=== PATIENT | female | born 1960 | race Two or more races ===

== ENCOUNTER 2020-01-02 10:58 | Outpatient (AMBR) | payer MEDICAID, SELFPAY ==
--- NOTE | 2020-01-02 16:33 | PT.ODS1RPT ---
PT OP Progress/Discharge Note Date of Service: January 02, 2020 Progress Note/DC Note Progress Note/Discharge Note: DC Note Patient Information Visit Reasons: RIGHT SHOULDER PAIN Medical Diagnosis: Right Shoulder Impingement Treatment Dx #1: Right Shoulder Pain Treatment Dx #2: Right Shoulder Mobility Deficits Service Continue Service or Discharge: Discharge Discharge Date: 01/02/20 Status Subjective: Pt mention that her shoulder is feeling worse. Pt does not notice any difference since started physical therapy. Pt continues to have limitation with overhead motions, lifting, chores, self care, cooking, and cleaning. Pt will like to stop physical therapy and return back to surgeon Objective: Right Shoulder AROM Flexion: 90 deg Abduction: 90 deg External Rotation: 90 deg Internal Rotation: 20 deg Right Shoulder MMTs: grossly 3-/5 Right Scapula MMTs: grossly 3-/5 Special Test (+) speed's (+) [email or web address]'s Assessment: Pt demonstrate no changes in ROM and strength since starting physical therapy leading to continue limitation with ADLs, chores, and overhead motions. Pt's have worsening symptoms after each therapy session. Pt advised to follow up with MD for further consultation. Pt did not meet set goals in therapy and was not given HEP due to exercises increase shoulder pain/symptoms. Pt will follow up with MD MACHUCA, thank you for your referrals. Plan: D/C home with HEP and follow up with MD Office Procedures PT Procedures PT Date of Service: 01/02/20 Therapeutic Exercise 30 minutes: Yes
== END 2020-01-30 23:59 | disposition home or self-care (01) ==
PROVIDERS: Visit Provider Orthopaedic Surgery
DX: M75.41 Impingement syndrome of right shoulder (principal); G89.29 Other chronic pain; M25.511 Pain in right shoulder
CPT/HCPCS: 97110

== ENCOUNTER → 2024-08-22 | Outpatient (CLI) | payer BC, SELFPAY ==
--- NOTE | 2024-08-22 11:34 | XR_ITS ---
Examination: Foot, right, 3 views Technique: AP, oblique, lateral views foot, 3 views Date and time of exam: August 22, 2024 1140 hours INDICATIONS: Right foot pain beginning one year ago. FINDINGS: Moderate osteoarthritis first metatarsophalangeal joint Small plantar posterior bony calcaneal spurs No fracture or dislocation IMPRESSION: Moderate osteoarthritis first metatarsophalangeal joint Small plantar posterior bony calcaneal spurs
--- NOTE | 2024-08-22 11:34 | XR_ITS ---
EXAMINATION: Ankle, right 3 views . Technique: Ankle AP, oblique, lateral 3 views Date and time of exam: August 22, 2024 1140 hours INDICATIONS: Right ankle pain one year getting worse. FINDINGS: Moderate osteopenia Mild osteoarthritis tibiotalar joint 5 mm plantar 4 mm posterior bony calcaneal spurs No fracture or dislocation IMPRESSION: Mild osteoarthritis tibiotalar joint 5 mm plantar 4 mm posterior bony calcaneal spurs
== END | disposition home or self-care (01) ==
PROVIDERS: PCP Internal Medicine; Referring Provider Internal Medicine; Visit Provider Internal Medicine
DX: M19.071 Primary osteoarthritis, right ankle and foot (principal); M77.31 Calcaneal spur, right foot
CPT/HCPCS: 73610; 73630

== ENCOUNTER → 2024-08-23 | Outpatient (CLI) | payer BC, SELFPAY ==
[2024-08-23 08:32] LABS: Basophils % (Auto) 0 % (0-2.5); Eosinophils # (Auto) 0.1 Thou/mm3 (0.0-0.5); Eosinophils % (Auto) 2 % (0-10); Hematocrit 39.6 % (36.0-46.0); Immature Granulocytes % (Auto) 0 % (0-0); Immature Granulocytes Auto 0.01 Thou/mm3 (0.00-0.00); Lymphocytes # (Auto) 2.6 Thou/mm3 (1.0-4.8); Lymphocytes % (Auto) 50 % (10-50); Mean Corpuscular HGB Conc 32.8 g/dl (31.0-37.0); Mean Corpuscular Hemoglobin 29.1 pg (25.0-35.0); Mean Corpuscular Volume 89 fL (80-100); Monocytes # (Auto) 0.5 Thou/mm3 (0.0-0.8); Monocytes % (Auto) 9 % (0-12); Neutrophils # (Auto) 2.1 Thou/mm3 (1.8-7.7); Neutrophils % (Auto) 39 % (37-80); Nucleated Red Blood Cell % 0 /100 WBC (0); Platelet Count 242 Thou/mm3 (140-440); RDW Standard Deviation 48.8 fL (36.4-46.3); Red Blood Count 4.46 Miln/mm3 (4.00-5.20); White Blood Count 5.3 Thou/mm3 (3.6-11.0)
[2024-08-23 09:03] LABS: Vitamin B12 749 pg/mL (211-911)
[2024-08-23 10:02] LABS: Alanine Aminotransferase 20 U/L (10-49); Albumin, Serum 4.5 gm/dL (3.4-4.8); Albumin/Globulin Ratio 1.4 (1.2-2.2); Alkaline Phosphatase 122 U/L (46-116); Anion Gap 5 (7-16); Aspartate Amino Transferase 24 U/L (0-34); BUN/Creatinine Ratio 25 Ratio (12-20); Blood Urea Nitrogen 20 mg/dL (9-23); Calcium 10.2 mg/dL (8.3-10.6); Calcium (Corrected) 10.2 mg/dL (8.5-10.1); Carbon Dioxide 30.2 mMol/L (20.0-31.0); Chloride 106 mMol/L (98-107); Creatinine (Component) 0.8 mg/dL (0.6-1.3); Globulin 3.2 gm/dL (2.3-3.5); Glucose 100 mg/dL (74-106); Osmolality,Calculated 283 (275-295); Potassium 4.2 mMol/L (3.4-5.1); Sodium 141 mMol/L (136-145); Thyroid Stimulating Hormone 1.62 uIU/mL (0.55-4.78); Total Protein 7.7 gm/dL (5.7-8.2); eGFR > 60 See Note
[2024-08-23 14:56] LABS: Bilirubin,Total 0.5 mg/dL (0.3-1.2); Cardiac Risk Estimate 2.9 RATIO (3.7-5.6); Cholesterol 232 mg/dL (132-200); HDL Cholesterol 80 mg/dL (40-60); LDL Cholesterol,Calculated 141 mg/dL (0-130); Triglycerides 57 mg/dL (30-150); Uric Acid 5.4 mg/dL (3.1-7.8)
[2024-08-23 16:06] LABS: Glucose Estimated Average 123 mg/dL (80-131); Hemoglobin A1C 5.9 % Hgb (4.8-6.0)
== END | disposition home or self-care (01) ==
PROVIDERS: PCP Internal Medicine; Referring Provider Internal Medicine; Visit Provider Internal Medicine
DX: M25.571 Pain in right ankle and joints of right foot (principal); M79.671 Pain in right foot; G25.0 Essential tremor; Z83.3 Family history of diabetes mellitus
CPT/HCPCS: 36415; 80053; 80061; 82607; 82746; 83036; 84443; 84550; 85025

== ENCOUNTER 2024-11-14 12:57 | Outpatient (AMB) | payer BC, SELFPAY ==
[2024-11-14 13:24] VITALS: BP 116/83; PULSE 90; RESP 18; TEMP 36.4; O2SAT 97; BMI 28.2
--- NOTE | 2024-11-14 13:24 | PD.ORTHCLVIS ---
Vital signs 11/14/24 13:24 Height 1.65 m Height Method Stated Weight 76.799 kg Weight Measurement Method Standing Scale BMI 28.2 BP 116/83 Blood Pressure Source Automatic Cuff Blood Pressure Location Right Upper Arm Position Sitting Respiration 18 Pulse 90 Pulse Source Monitor Temp 97.5 F Temp Source Temporal Artery Scan Pulse Oximetry (%) 97 Oxygen Delivery Method Room Air Med/Allergies Allergies & Medications Allergies No Known Allergies Allergy (Verified 11/14/24 13:25) Medication Reconciliation diclofenac sodium 75 mg tablet,delayed release 75 mg PO BID #20 tabs 04/29/20 [Rx Confirmed 11/14/24] hydrocodone 5 mg-acetaminophen 325 mg tablet 1 tab PO BID PRN pain #10 tabs 02/10/21 [Rx Confirmed 11/14/24] ibuprofen 800 mg tablet 800 mg PO TID PRN pain #30 tabs 02/10/21 [Rx Confirmed 11/14/24] Exam Exam Patient is in no acute distress and is cooperative with the examination today. Breathing is nonlabored. Patient has a normal mood and affect. Bilateral extremities were evaluated and demonstrates sensation intact to light touch. Palpable pedal pulses are present. No significant edema is present. Bilateral hips were examined. The patient has no pain with log roll of the hips. Internal rotation to 30 degrees and external rotation to 30 degrees is painless. Negative FADIR. Right knee was examined today. The right knee is in reasonable alignment. Range of motion from 0-120 degrees. Knee is stable to varus and valgus as well as AP translation with <5mm. Patient has a negative McMurrays. There is no pain with patellofemoral compression and no crepitus noted. The knee is nontender to palpation. Left knee was examined today. The left knee is in [varus] alignment. Range of motion from [0-115] degrees. Knee is stable to varus and valgus as well as AP translation with <5mm. Patient has a [negative] McMurrays. There is [no] pain with patellofemoral compression and [no] crepitus noted. The knee is [tender] to palpation [medially]. X-rays of the left knee demonstrate moderate osteoarthritis and moderate joint space narrowing. There is predominantly in the medial compartment. Assessment and Plan Problem List (1) Unilateral primary osteoarthritis, left knee: Status: Acute Plan: Patient is a 61-year-old female with mild to moderate osteoarthritis. She reports that she is doing well with conservative treatment She does not want a cortisone injection Office Procedures GNS Level of Care Nursing/Assessment Patient Status: Established Patient Nursing Assessment/Reassesment: Medication Reconciliation, Update PMH in EMR and Vital Signs Coordination of Care: Complex Care and Chronic Disease 1-5, Education Complex Pt/Fam, Consent,records obtained, informed consent, Results/Orders obtained and Staff clarify orders Special Needs: Language special needs Established Patient Charge Established Patient Point Assignment: 95 Established Patient Point Charge: EP Level 3 (80-115) MA Intake Visit Data Collection New Patient or Established: Established Patient (seen at [facility] within 3 years) Reason for Visit:: LEFT KNEE PAIN Seen by Clinical Staff ONLY (RN/MA): No Verbal consent obtained for Telemed visit?: No Special Library Librarian Required: No PCP or OBGYN visit in last 3 months: Yes Hx Now: No Do You Feel Safe at Home: Yes Authorities Contacted: N/A Questionairres Past Medical History Past Medical History Have you ever been diagnosed with any of the following: Cardiology Problems Congestive Heart Failure: No Respiratory Problems Chronic Obstructive Pulmonary Disease (COPD): No Genital/Urinary Problems Renal Disease: No Endocrine Problems Diabetes Mellitus Type 1: No Diabetes Mellitus Type 2: No Subjective Visit Visit for: follow up visit and knee Immunization / Flu Flu Vaccine in the Last 12 Months: No Flu Vaccine Exclusion Criteria: Refused by Patient and Already Received History of Present Illness Chief complaint: bilateral knees Patient is a 64-year-old female with over a year of left knee pain. The pain is primarily on the medial aspect of her knee. She has tried meloxicam and Tylenol. She does not have any injections. She has not had any physical therapy mainly because of the pain. She was prescribed therapy. Personal History Red flag PMH: BMI BMI Counceling provided: Yes Pain Pain level (0-10): 5 Pain duration: ALL DAY Pain location: inside (medial), outside (lateral), anterior and posterior Pain quality: sharp, dull and aching Pain timing: increases with activity Ambulatory data Ambulatory device: none Treatments Improvement with previous injections: No Improvement with PT: No Improvement with NSAIDS: no Review of Systems Review of Systems: All systems negative unless otherwise noted in HPI.
== END 2024-11-14 13:29 | disposition home or self-care (01) ==
PROVIDERS: PCP Internal Medicine; Referring Provider Internal Medicine; Supervising Provider Orthopaedic Surgery Adult Reconstructive Orthopaedic Surgery; Visit Provider Orthopaedic Surgery Adult Reconstructive Orthopaedic Surgery
DX: M17.12 Unilateral primary osteoarthritis, left knee (principal); M25.562 Pain in left knee
CPT/HCPCS: 99213; G0463

== ENCOUNTER 2025-01-30 13:09 | Outpatient (AMB) | payer BC, SELFPAY ==
--- NOTE | 2025-01-30 13:22 | PD.ORTHCLVIS ---
Vital signs 01/30/25 13:23 Height 1.65 m Height Method Stated Weight 78.103 kg Weight Measurement Method Standing Scale BMI 28.7 BP 132/84 H Blood Pressure Source Automatic Cuff Blood Pressure Location Left Upper Arm Position Sitting Respiration 18 Pulse 85 Pulse Source Monitor Temp 97.2 F Temp Source Temporal Artery Scan Pulse Oximetry (%) 95 Oxygen Delivery Method Room Air Med/Allergies Allergies & Medications Allergies No Known Allergies Allergy (Verified 01/30/25 13:26) Medication Reconciliation diclofenac sodium 75 mg tablet,delayed release 75 mg PO BID #20 tabs 04/29/20 [Rx Confirmed 01/30/25] hydrocodone 5 mg-acetaminophen 325 mg tablet 1 tab PO BID PRN pain #10 tabs 02/10/21 [Rx Confirmed 01/30/25] ibuprofen 800 mg tablet 800 mg PO TID PRN pain #30 tabs 02/10/21 [Rx Confirmed 01/30/25] Exam Exam Patient is in no acute distress and is cooperative with the examination today. Breathing is nonlabored. Patient has a normal mood and affect. Bilateral extremities were evaluated and demonstrates sensation intact to light touch. Palpable pedal pulses are present. No significant edema is present. Bilateral hips were examined. The patient has no pain with log roll of the hips. Internal rotation to 30 degrees and external rotation to 30 degrees is painless. Negative FADIR. Right knee was examined today. The right knee is in reasonable alignment. Range of motion from 0-120 degrees. Knee is stable to varus and valgus as well as AP translation with <5mm. Patient has a negative McMurrays. There is no pain with patellofemoral compression and no crepitus noted. The knee is nontender to palpation. Left knee was examined today. The left knee is in [varus] alignment. Range of motion from [0-115] degrees. Knee is stable to varus and valgus as well as AP translation with <5mm. Patient has a [negative] McMurrays. There is [no] pain with patellofemoral compression and [no] crepitus noted. The knee is [tender] to palpation [medially]. X-rays of the left knee demonstrate moderate osteoarthritis and moderate joint space narrowing. There is predominantly in the medial compartment. Assessment and Plan Problem List (1) Unilateral primary osteoarthritis, left knee: Status: Acute Plan: Patient is a 61-year-old female with mild to moderate osteoarthritis. She reports that she is doing well with conservative treatment She would like a left knee cortisone injection today Recommend knee cortisone injection as patient would like to proceed with conservative treatment at this time. The risks and benefits of the procedure were reviewed with the patient and patient gave verbal consent to continue with the procedure. Procedure: performed by Dr. Ojeda Using sterile technique the left knee was thoroughly prepped with alcohol, and approximately 1 cc of Kenalog 40 mg/mL and 4 cc of 1% lidocaine was injected without resistance into the medial tibial femoral joint space. The patient tolerated the procedure. Office Procedures GNS Level of Care Nursing/Assessment Patient Status: Established Patient Nursing Assessment/Reassesment: Medication Reconciliation, Update PMH in EMR and Vital Signs Coordination of Care: Complex Care and Chronic Disease 1-5, Education Complex Pt/Fam, Consent,records obtained, informed consent, Results/Orders obtained and Staff clarify orders Special Needs: Language special needs Established Patient Charge Established Patient Point Assignment: 95 Established Patient Point Charge: EP Level 3 (80-115) Surgical Proc/IM SQ injection Major Surgical Procedure: Yes (KNEE INJECTION) Medication Given Medication Given Medication Given: Yes Documented Dose Given: 4 Route: Infiitration Medication Given Medication Given Medication Given: Yes Documented Dose Given: 1 Route: Infiitration Office Meds Xylocaine 10 mg/mL (1 %) injection solution Performing Provider: Edwin Ojeda MD Performing Location: [facility] Administered by: Edwin Ojeda MD on 01/30/25 14:48 Dose Route Admin Location Dispensed Lot Number Expiration Date [facility] [place] Card Maker 20 mL Infiltration 20 mL [id number] 03/31/28 85749-399-36 [facility] triamcinolone acetonide 40 mg/mL suspension for injection Performing Provider: Edwin Ojeda MD Performing Location: [facility] Administered by: Edwin Ojeda MD on 01/30/25 14:48 Dose Route Admin Location Dispensed Lot Number Expiration Date [facility] [place] Card Maker 40 mg intra-articular KNEE 1 mL [id number] 07/31/26 4809-2680-49 [employer] [place] Intake Visit Data Collection New Patient or Established: Established Patient (seen at [facility] within 3 years) Reason for Visit:: LEFT KNEE PAIN/REQ INJ Seen by Clinical Staff ONLY (RN/MA): No PCP or OBGYN visit in last 3 months: Yes Hx Now: No Do You Feel Safe at Home: Yes Authorities Contacted: N/A Questionairres Past Medical History Past Medical History Have you ever been diagnosed with any of the following: Cardiology Problems Congestive Heart Failure: No Respiratory Problems Chronic Obstructive Pulmonary Disease (COPD): No Smoking: No Smoking Exposure: No Genital/Urinary Problems Renal Disease: No Endocrine Problems Diabetes Mellitus Type 1: No Diabetes Mellitus Type 2: No Subjective Visit Visit for: follow up visit, knee and injections Immunization / Flu Flu Vaccine in the Last 12 Months: No Flu Vaccine Exclusion Criteria: No Exclusion Criteria History of Present Illness Chief complaint: bilateral knees Patient is a 64-year-old female with over a year of left knee pain. The pain is primarily on the medial aspect of her knee. She has tried meloxicam and Tylenol. She has not have any injections. She has not had any physical therapy mainly because of the pain. She was prescribed therapy. Personal History Red flag PMH: BMI BMI Counceling provided: Yes Pain Pain level (0-10): 8 Pain duration: ALL DAY Pain location: inside (medial), outside (lateral) and anterior Pain quality: sharp, dull and aching Pain timing: night, increases with activity and stairs Associated signs & symptoms: weakness Ambulatory data Ambulatory device: none Treatments Improvement with previous injections: No Improvement with PT: No Improvement with NSAIDS: no Review of Systems Review of Systems: All systems negative unless otherwise noted in HPI.
[2025-01-30 13:23] VITALS: BP 132/84; PULSE 85; RESP 18; TEMP 36.2; O2SAT 95; BMI 28.7
== END 2025-01-30 13:42 | disposition home or self-care (01) ==
LOC: HODSRG 13:09
PROVIDERS: PCP Internal Medicine; Referring Provider Internal Medicine; Supervising Provider Orthopaedic Surgery Adult Reconstructive Orthopaedic Surgery; Visit Provider Orthopaedic Surgery Adult Reconstructive Orthopaedic Surgery
DX: M17.12 Unilateral primary osteoarthritis, left knee (principal); M25.562 Pain in left knee
CPT/HCPCS: 20610; 99213; J3301; J3490; G0463